=== PATIENT | female | born 1970 | race Caucasian/White ===

== ENCOUNTER 2018-01-26 08:59 | Emergency (ER) | payer MEDICAID ==
[~2018-01-26] VITALS: Ht 162.6 cm; Wt 109.0 kg
[2018-01-26 09:06] VITALS: BP 157/91
[2018-01-26] MEDS ORDERED: naproxen 500mg tablet PO ONE (09:15)
[2018-01-26] MEDS ORDERED: NAPR-56 PO (09:19)
== END 2018-01-26 09:31 | disposition home or self-care (01) ==
LOC: ER 09:00
DX: M25.511 Pain in right shoulder (principal); Z88.8 Allergy status to other drugs, medicaments and biological substances; Z79.899 Other long term (current) drug therapy
CPT/HCPCS: 99282

== ENCOUNTER 2018-08-03 09:00 | Emergency (ER) | payer MEDICAID ==
[~2018-08-03] VITALS: Ht 162.6 cm; Wt 119.6 kg
[~2018-08-03 09:00] MED LIST: METH4TAB3 PO; METH500T PO; ONDA4TAB6 PO
[2018-08-03] MEDS ORDERED: AMOX500C2 PO (09:29)
[2018-08-03] MEDS ORDERED: ondansetron 4mg rapidly disintigrating tab PO ONE (09:30)
[2018-08-03] MEDS ORDERED: acetaminophen 325mg tablet PO ONE (09:30)
[2018-08-03] MEDS ORDERED: amoxicillin 250mg capsule PO ONE (09:30)
[2018-08-03] MEDS ORDERED: ibuprofen 200mg tablet PO ONE (09:30)
[2018-08-03 09:38] VITALS: BP 120/82
== END 2018-08-03 09:40 | disposition home or self-care (01) ==
LOC: ER 09:00
DX: H92.01 Otalgia, right ear (principal); Z88.6 Allergy status to analgesic agent; Z88.8 Allergy status to other drugs, medicaments and biological substances; Z79.899 Other long term (current) drug therapy
CPT/HCPCS: 99284

== ENCOUNTER 2020-06-20 08:27 | Day surgery (SDC) | payer MEDICAID ==
[~2020-06-20] VITALS: Ht 163.8 cm; Wt 122.7 kg
[2020-06-20] MEDS ORDERED: QUET300T2 PO (08:52)
[2020-06-20] MEDS ORDERED: RISP4TAB7 PO (08:53)
[2020-06-20] MEDS ORDERED: MIRT-116 PO (08:53)
[2020-06-20] MEDS ORDERED: DULO60CA45 PO (08:54)
[2020-06-20] MEDS ORDERED: PRAZ2CAP2 PO (08:55)
[2020-06-20] MEDS ORDERED: CLON-527 PO (08:56)
[2020-06-20] MEDS ORDERED: ERGO500056 PO (08:56)
[2020-06-20] MEDS ORDERED: ATOR40TA71 PO (09:00)
[2020-06-20] MEDS ORDERED: LORA10TA7 PO (09:01)
[2020-06-20] MEDS ORDERED: DOCU-21 PO (09:01)
[2020-06-20] MEDS ORDERED: MULT-1141 PO (09:02)
[2020-06-20 09:21] VITALS: BP 124/66
[2020-06-20] MEDS ORDERED: fentaNYL/PF 50MCG/1 ML 2ML syringe ONE (09:29)
[2020-06-20] MEDS ORDERED: MIDAZolam 1 MG/ML 5ML VIAL ONE (09:29)
[2020-06-20 10:56] VITALS: BP 133/90
[2020-06-20 11:06] VITALS: BP 126/77
[2020-06-20 11:16] VITALS: BP 118/77
[2020-06-20 11:26] VITALS: BP 126/75
== END 2020-06-20 11:35 | disposition home or self-care (01) ==
LOC: GI LAB 08:27
PROVIDERS: ATTEND Internal Medicine Gastroenterology
DX: Z12.11 Encounter for screening for malignant neoplasm of colon (principal); K63.5 Polyp of colon; K62.1 Rectal polyp; K64.8 Other hemorrhoids; K63.89 Other specified diseases of intestine; K56.2 Volvulus; F17.210 Nicotine dependence, cigarettes, uncomplicated; Z86.19 Personal history of other infectious and parasitic diseases; Z79.899 Other long term (current) drug therapy; Z88.8 Allergy status to other drugs, medicaments and biological substances; Z91.09 Other allergy status, other than to drugs and biological substances
CPT/HCPCS: 45380; 45385; 99152; 99153; C1773; J2250; J3010; J7040; A4620